=== PATIENT | female | born 1980 ===

== ENCOUNTER 2018-11-30 09:41 | Emergency (ER) | payer MEDICAID ==
[2018-11-30 09:55] VITALS: RESP 18; O2SAT 98
--- NOTE | 2018-11-30 10:29 | ED PDOC ---
Arrival/HPI - General Chief Complaint: Breast Problem Time Seen by Provider: 11/30/18 09:46 Historian: Patient - History of Present Illness Narrative History of Present Illness (Text): 11/30/18 10:56 38 y/o female with no significant PMH presents to the ED c/o left breast pain x 3 days. Pt is currently her 9 month old child. States pain has improved over the last few days, but persists. Pain is sharp, located at 3 o'clock on left breast and radiates to nipple intermittently. When the pain began, patient stopped breast feeding and pumping from the left side. Associated left breast swelling. Unable to followup with OBGYN or PMD because they were booked. Also c/o 3 weeks of bilateral calf pain. Denies fever, chills, breast redness or other skin changes, chest pain, SOB, abdominal pain, nausea, vomiting, cough, hemoptysis, abnormal nipple discharge, or any other associated symptoms. Past Medical History - Psychiatric Hx Substance Use: No Family/Social History - Physician Review Nursing Documentation Reviewed: Yes Family/Social History: No Known Family HX Smoking Status: Never Smoked Hx Alcohol Use: No Hx Substance Use: No Allergies/Home Meds Allergies/Adverse Reactions: Allergies No Known Allergies Allergy (Verified 11/30/18 09:55) Home Medications: Home Meds Medication Instructions Recorded Confirmed No Known Home Med 11/30/18 11/30/18 Review of Systems - Review of Systems Constitutional: Other (breast pain). absent: Fatigue, Fevers Eyes: Normal. absent: Vision Changes ENT: Normal. absent: Sore Throat, Sinus Congestion Respiratory: Normal. absent: SOB, Cough Cardiovascular: Normal. absent: Chest Pain, Palpitations Gastrointestinal: Normal. absent: Abdominal Pain, Stool Changes, Nausea, Vomiting, Appetite Changes Genitourinary Female: Normal. absent: Dysuria, Frequency, Vaginal Bleeding, Vaginal Discharge Musculoskeletal: Myalgias (calf pain). absent: Arthralgias, Back Pain, Neck Pain Skin: Normal. absent: Rash, Laceration, Cellulitis Neurological: Normal. absent: Headache, Dizziness Endocrine: Normal Hemo/Lymphatic: Normal Psychiatric: Normal Physical Exam Vital Signs Reviewed: Yes Vital Signs Temp Pulse Resp BP Pulse Ox 11/30/18 09:53 98.3 F 89 18 123/76 98 Temperature: Afebrile Blood Pressure: Normal Pulse: Regular Respiratory Rate: Normal Appearance: Positive for: Well-Appearing, Non-Toxic, Comfortable Pain Distress: None Mental Status: Positive for: Alert and Oriented X 3 - Systems Exam Head: Present: Atraumatic, Normocephalic Pupils: Present: PERRL Extroacular Muscles: Present: EOMI Conjunctiva: Present: Normal Mouth: Present: Moist Mucous Membranes Neck: Present: Normal Range of Motion. No: Paraspinal Tenderness Respiratory/Chest: Present: Clear to Auscultation, Good Air Exchange. No: Respiratory Distress, Accessory Muscle Use Cardiovascular: Present: Regular Rate and Rhythm, Normal S1, S2, Peripheal Pulses Present Abdomen: Present: Normal Bowel Sounds. No: Tenderness, Distention, Peritoneal Signs, Rebound, Guarding Breast/Axillary: Present: Masses (left breast 3 o'clock, small, elongated, mobile, tender, ), Swelling (left breast generalized swelling), Tender to Palpation (left breast 3 o'clock). No: Axillary Lymphad, Discoloration, Erythema, Fluctuance, Nipple Discharge Back: Present: Normal Inspection. No: CVA Tenderness, Paraspinal Tenderness Upper Extremity: Present: Normal Inspection, Normal ROM, NORMAL PULSES, Neurovascularly Intact, Capillary Refill < 2s. No: Cyanosis, Edema, Temperature Abnormalties Lower Extremity: Present: Normal Inspection, CALF TENDERNESS (bilateral), NORMAL PULSES, Normal ROM, Neurovascularly Intact, Capillary Refill < 2 s. No: Swelling, Erythema, Deformity, Temperature Abnormalties Neurological: Present: GCS=15, CN II-XII Intact, Speech Normal, Motor Func Grossly Intact, Normal Sensory Function, Gait Normal Skin: Present: Warm, Dry, Normal Color. No: Rashes Psychiatric: Present: Alert, Oriented x 3, Normal Insight, Normal Concentration, Normal Affect, Normal Mood Medical Decision Making ED Course and Treatment: Initial Plan: * Breast Ultrasound * Tylenol 10:40 Patient informing me that she forgot to mention her bilateral calf pain that she has been experiencing for the past 3 weeks. States her doctor "wanted her to get that checked out too". Bilateral venous duplex ordered. Prelim venous duplex read negative for DVT Breast ultrasound negative for mass, abscess. Benign study. No clinical evidence of mastitis. No fever, chills, nausea, dizziness, headache, breast redness. 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 Encouraged breast feeding/pumping from the affected breast, warm compresses, and followup with OBGYN with return to ED for persistent, worsening symptoms. Diagnostic testing results and plan of care discussed with patient. Strict instructions given regarding prescription use, importance of followup, and signs/symptoms to return to ER including or any other new/worsening symptoms. Pt verbalized understanding of discussion. Patient is A&Ox3, ambulating with steady gait, with vital signs stable for discharge. - RAD Interpretation Narrative RAD Interpretations (Text): Breast Ultrasound: Impression: No sonographic evidence at site of patient's pain. Specifically, no sonographic evidence of malignancy. Clinical followup is advised and management should be based on other clinical parameters. BIRADS 2 benign finding. Recommend annual screening mammography. Radiology Orders: 11/30/18 10:07 BREAST UNILATERAL LEFT [US] Stat Sap Basis: Radiologist - Medication Orders Current Medication Orders: Discontinued Medications Acetaminophen (Tylenol 325mg Tab) 650 mg PO STAT STA Stop: 11/30/18 10:19 Disposition/Present on Arrival - Present on Arrival Any Indicators Present on Arrival: No History of DVT/PE: No History of Uncontrolled Diabetes: No Urinary Catheter: No History of Decub. Ulcer: No History Surgical Site Infection Following: None - Disposition Have Diagnosis and Disposition been Completed?: Yes Diagnosis: Mammary duct ectasia of breast Disposition: HOME/ ROUTINE Disposition Time: 11:45 Patient Plan: Discharge Condition: STABLE Discharge Instructions (ExitCare): Common Breast Problems Additional Instructions: Warm compresses Breast feed from left side Followup with OBGYN within 2 days Followup with primary doctor within 2 days Return to ER for any new/worsening symptoms Referrals: Luiza Alvarado MD [Staff Provider] - Follow up with primary Forms: [employer] (Martiniquais), WORK NOTE
--- NOTE | 2018-11-30 11:18 | US ---
Date of service: 11/30/2018 HISTORY: Left breast pain. History of . COMPARISON: None TECHNIQUE: Targeted high-resolution ultrasound of the left breast was performed with real-time linear scanner. FINDINGS: LEFT BREAST: There is heterogeneous background echotexture. No solid or cystic masses identified. There is no axillary lymphadenopathy. IMPRESSION: No sonographic abnormality at the site of patient's pain. Specifically, no sonographic evidence of malignancy. Clinical follow-up is advised and further management should be based on other clinical parameters. BIRAD: BIRADS 2 Benign finding Recommendation: Continue annual screening mammography, as per ACR guidelines.
[2018-11-30 12:27] VITALS: BP 122/78; PULSE 72; TEMP 98.4
--- NOTE | 2018-11-30 14:49 | US ---
HISTORY: Leg pain and swelling. Evaluate for DVT PHYSICIAN(S): Tavares Guevara MD. TECHNIQUE: Duplex sonography and color-flow Doppler with graded compression were used to evaluate the deep venous systems of both lower extremities. FINDINGS: The visualized deep venous systems of both lower extremities are sonographically normal and compressible. Normal wave forms and augmentation are seen. There is no sonographic evidence for deep venous thrombosis in the visualized segments of both lower extremities. IMPRESSION: No sonographic evidence for deep venous thrombosis in the visualized segments of both lower extremities.
== END 2018-11-30 12:08 | disposition home or self-care (01) ==
LOC: ED 09:41
DX: N60.42 Mammary duct ectasia of left breast (principal)